=== PATIENT | female | born 1980 | race Caucasian/White ===

== ENCOUNTER 2017-11-13 21:07 | Emergency (ER) | payer OTHER ==
[~2017-11-13] VITALS: Ht 170.2 cm; Wt 85.0 kg
[2017-11-13 21:10] VITALS: TEMP 37; Ht 170.2 cm; Wt 85.0 kg
[2017-11-13] MEDS ORDERED: ALBU18002 INH (21:20)
[2017-11-13] MEDS ORDERED: ALBINS/ INH (21:20)
[2017-11-13] MEDS ORDERED: HYDROCODONE/ACETAMIN 5/325MG TAB PO STA (21:24)
--- NOTE | 2017-11-13 21:35 | EMERGENCY ROOM VISIT NOTE ---
ED Visit Note First contact with patient: 21:21 CHIEF COMPLAINT: Fall, left wrist and left knee pain HISTORY OF PRESENT ILLNESS: This 37-year-old female patient presents to the emergency department with complaint of left knee and left wrist pain after a fall from tripping about 1 hour ago. Patient states that she tripped on a pile of laundry, falling forward onto her knee and wrist. The patient denies any other injuries besides their knee and wrist. She denies hitting her head or loss of consciousness. The patient has mild swelling and bruising of the left knee, she denies any significant swelling or bruising of the left wrist. There is pain with movement of the knee and wrist. They rate the pain as throbbing and 7/10. The patient states they are able to walk on the left knee, but with a limp. No numbness or tingling in the left arm or left leg. She reports multiple surgeries to the left knee. No previous injuries to the left wrist. No ankle, foot or hip pain. No elbow or shoulder pain. No lacerations or abrasions. The patient is able to move their fingers and elbow without difficulty. The patient has taken no medications for the pain. Patient denies any neck pain, back pain, chest pain, shortness of breath, abdominal pain, nausea or vomiting, dizziness or syncope, bowel or bladder dysfunction, or unusual rash. REVIEW OF SYSTEMS: A complete 10 point review of systems was reviewed with the patient with pertinent positives and negatives as per history of present illness. All else were negative. ALLERGIES: Reviewed in chart, see below MEDICATIONS: Reviewed in chart, see below PMH: Previous knee surgeries. Asthma. SOCIAL HISTORY: Lives at home. She is a current everyday smoker. PHYSICAL EXAM: Vital Signs: Reviewed Nurse's notes, vital signs stable. GENERAL: Pleasant and cooperative, no acute distress, but appears in pain, well-developed, well- nourished. MENTAL STATUS: Alert, oriented to person place and time, and cooperative. MUSCULOSKELETAL: The left knee is mildly swollen. There is some ecchymosis on the anterior of the knee. There is no obvious joint effusion present. The patient is tender to palpation over the anterior and inferior knee. There is no joint line tenderness. The patella does not subluxate. Range of motion is limited due to pain. Strength of the quads and hamstrings is 5/5. January's and Anterior Drawer tests are negative. There is no instability with varus and valgus stressing. The foot and toes are warm and well-perfused. Dorsalis pedis pulse 2+. Sensation to pain and light touch is intact. Capillary refill less than 2 seconds. There is no deformity of the left wrist. There is tenderness and mild edema over distal radius to palpation. There is snuff box tenderness. Range of motion is limited due to pain. There is no tenderness of the elbow, hand or fingers. Set Painter strength 5/5. Radial pulse 2+. SKIN: Normal and intact. The hand is warm and well perfused with capillary refill less than 2 seconds. NEURO: Alert and oriented to person place and time. Normal sensation to light and sharp touch. EMERGENCY DEPARTMENT COURSE: I examined the patient. Differential diagnosis includes contusion, hematoma, sprain/strain, fracture, dislocation, among others. Patient was provided with an ice pack, and given [place] for her pain. X -rays of the left wrist and left knee were reviewed by myself and read by radiology and reveal no acute bony abnormalities. The patient was placed in a knee immobilizer to the left knee under my direction and the position was satisfactory. The patient states that she has crutches at home and verbalized understanding on use. A thumb spica splint was placed to the left wrist under my direction and the position was satisfactory. Neurovascular status rechecked and intact. Patient was educated regarding continued management, follow-up, and return precautions should her symptoms worsen, she verbalized understanding. The patient was discharged home in good condition. Medication Reconciliation: I attest that I have personally reviewed the patient' s current medication list. Patient's blood pressure today was found to be elevated, which was felt to be situational. Current/Historical Medications Scheduled PRN Albuterol Sulf (Proventil 0.083% 2.5MG/3ML), 2.5 MG INH QID PRN for Shortness of Breath Albuterol Sulfate (Proair Respiclick), 2 PUFFS INH QID PRN for Shortness of Breath Allergies Coded Allergies: NSAIDs (Verified Allergy, Intermediate, FACIAL SWELLING W/ NAPROSYN, ) Diphenhydramine (Verified Allergy, Mild, 11/13/17) Phenazopyridine (Verified Allergy, Mild, 11/13/17) Vital Signs Date Time Temp Pulse Resp B/P (MAP) Pulse Ox O2 Delivery O2 Flow Rate FiO2 11/13/17 22:42 98 20 149/106 97 11/13/17 21:10 37.0 109 18 99 Room Air Medications Administered Medications (Trade) Dose Ordered Sig/Sheba Route Start Time Stop Time Status Last Admin Dose Admin Acetaminophen/ Hydrocodone Bitart ([place] 5/325 Tab) 1 tab NOW STAT PO 11/13/17 21:24 11/13/17 21:27 DC 11/13/17 21:35 1 TAB Departure Information Impression Primary Impression: Fall Additional Impressions: Contusion of left knee Left wrist sprain Dispostion Home / Self-Care Condition GOOD Referrals Padma Eaton M.D. (PCP) Richie Jacobo M.D. Varghese Khan,D.O. Patient Instructions ED Contusion Lower Ext, ED Sprain Knee, ED Sprain Wrist, [facility] Additional Instructions DISCHARGE INSTRUCTIONS: You have been evaluated and treated for your left wrist pain and left knee pain after a fall. X-rays today are negative for any fractures or dislocations. Apply ice intermittently and frequently to the left knee and left wrist and keep elevated to help reduce swelling and pain. Wear the wrist splint to help support the wrist. Wear knee immobilizer when up and about. Use your crutches - minimal weight on foot. Ibuprofen 600 mg and Tylenol 1000 mg every 6-8 hours as needed for pain. Follow-up with your Orthopedic Surgeon for further evaluation and treatment - call for appointment. Return to the emergency department for severe worsening pain, new numbness or weakness in the arm or leg, or any other concerns. Work Instructions Return To Work: 2 days Problem Qualifiers Primary Impression: Fall Encounter type: initial encounter Qualified Codes: W19.XXXA - Unspecified fall, initial encounter Additional Impressions: Contusion of left knee Encounter type: initial encounter Qualified Codes: S80.02XA - Contusion of left knee, initial encounter Left wrist sprain Encounter type: initial encounter Qualified Codes: S63.502A - Unspecified sprain of left wrist, initial encounter
--- NOTE | 2017-11-13 22:09 | DIAGNOSTIC IMAGING REPORT ---
L KNEE 3 VIEWS CLINICAL HISTORY: 37 years-old Female presenting with fall onto knee, eval trauma, include sunrise view. TECHNIQUE: Frontal, lateral, and sunrise views of the left knee were obtained. COMPARISON: 03/25/2014. FINDINGS: Postsurgical changes of clear and patellar resurfacing. No patellar subluxation. No periarticular fracture or malalignment. No hardware complication. Mild medial joint space loss and osteophytosis in the lateral compartment noted. Mild anterior soft tissue swelling suggested. Multiple screw tracks noted in the proximal tibial metaphysis. Small knee joint effusion may be present. IMPRESSION: 1. No acute osseous injury. 2. Postsurgical changes without hardware complication. 3. Degenerative changes of the medial lateral compartments. 4. Small knee joint effusion. Electronically signed by: Endy Taveras M.D. 11/13/2017 10:08 PM Dictated Date/Time: 11/13/2017 10:05 PM
--- NOTE | 2017-11-13 22:11 | DIAGNOSTIC IMAGING REPORT ---
L WRIST W/NAVICULAR MIN 3 VIEWS CLINICAL HISTORY: 37 years-old Female presenting with fall, wrist injury, eval trauma. TECHNIQUE: Frontal, bilateral oblique, lateral, and scaphoid views of the left wrist were obtained. COMPARISON: 06/20/2012. FINDINGS: The scaphoid is normal. No acute fracture or malalignment. No advanced degenerative change. No radiographic soft tissue abnormality. IMPRESSION: No acute osseous injury. Electronically signed by: Endy Taveras M.D. 11/13/2017 10:09 PM Dictated Date/Time: 11/13/2017 10:08 PM
[2017-11-13 22:42] VITALS: BP 149/106; PULSE 98; O2SAT 97
== END 2017-11-13 22:44 | disposition home or self-care (01) ==
LOC: C.EDB 21:09 → C.EDD 22:44
DX: S80.02XA Contusion of left knee, initial encounter (principal); S63.502A Unspecified sprain of left wrist, initial encounter; W18.09XA Striking against other object with subsequent fall, initial encounter; J45.909 Unspecified asthma, uncomplicated; F17.200 Nicotine dependence, unspecified, uncomplicated; Z88.6 Allergy status to analgesic agent